=== PATIENT | female | born 1970 | race Caucasian/White ===

== ENCOUNTER 2017-01-05 15:27 | Emergency (ER) | payer OTHER ==
[2017-01-05] MEDS ORDERED: NO HOME MEDICATION XX (15:44)
[2017-01-05] MEDS ORDERED: AUGMENTIN 875-1 EAC2 PO (16:39)
== END 2017-01-05 17:12 ==
LOC: EDMED 15:27
DX: J20.9 Acute bronchitis, unspecified (principal); R22.0 Localized swelling, mass and lump, head; R51 Headache; Z98.890 Other specified postprocedural states; F17.210 Nicotine dependence, cigarettes, uncomplicated